=== PATIENT | female | born 2005 | race American Indian/Alaskan Native ===

== ENCOUNTER 2025-01-03 01:17 | Inpatient (IN) | payer BC, MEDICAID ==
[~2025-01-03] VITALS: Ht 170.2 cm; Wt 70.4 kg
[2025-01-03 01:53] LABS: APPEARANCE,URINE CLEAR (CLEAR); BILIRUBIN,URINE NEGATIVE (NEGATIVE); COLOR,URINE COLORLESS (YELLOW); GLUCOSE, URINE (UA) NEGATIVE (NEGATIVE); KETONES,URINE NEGATIVE (NEGATIVE); LEUKOCYTE ESTERASE ,URINE NEGATIVE (NEGATIVE); NITRATE,URINE NEGATIVE (NEGATIVE); OCCULT BLOOD,URINE TRACE (NEGATIVE); PH,URINE 5.5 (5.0-8.0); PH,URINE DRUG SCREEN 5.5 (5.0-8.0); PROTEIN,URINE NEGATIVE (NEGATIVE); SPECIFIC GRAVITIY, URINE 1.004 (1.003-1.030); UROBILINOGEN,URINE <=1.0 mg/dL (<=1.0)
[2025-01-03 01:55] LABS: RBC,URINE 0-2 /HPF (0-2)
[2025-01-03 01:56] LABS: BACTERIA,URINE None Seen /HPF (None Seen); SQUAMOUS EPITHELIAL CELL,UR Rare /LPF (None Seen); WBC,URINE None Seen /HPF (0-5)
[2025-01-03 02:00] LABS: ALCOHOL, URINE DRUG SCREEN POSITIVE (NEGATIVE); AMPHET/METH SCREEN,URINE NEGATIVE (NEGATIVE); BARBITURATE SCREEN, URINE NEGATIVE (NEGATIVE); BENZODIAZEPINES SCREEN,URINE POSITIVE (NEGATIVE); CANNABINOID SCREEN,URINE POSITIVE (NEGATIVE); COCAINE SCREEN,URINE NEGATIVE (NEGATIVE); METHADONE SCREEN, URINE NEGATIVE (NEGATIVE); OPIATE SCREEN,URINE NEGATIVE (NEGATIVE); PHENCYCLIDINE SCREEN,URINE NEGATIVE (NEGATIVE)
[2025-01-03 02:19] LABS: COVID AG,FIA SOURCE NASAL SWAB
[2025-01-03 02:42] LABS: SARS-COV2 (COVID) ANTIGEN,FIA Negative (Negative)
[2025-01-03 03:03] LABS: ANION GAP 9 mmol/L (8-16); CALCIUM, TOTAL 9.1 mg/dL (8.8-10.5); CARBON DIOXIDE 26 mmol/L (22-29); CHLORIDE 106 mmol/L (98-107); CREATININE 0.68 mg/dL (0.60-1.30); GLOMERULAR FILTR. RATE CALC > 60 mL/min (>60); GLUCOSE,RANDOM 74 mg/dL (70-110); POTASSIUM 3.7 mmol/L (3.5-5.1); SODIUM SERUM 141 mmol/L (136-145); UREA NITROGEN, BLOOD 10 mg/dL (7-18)
[2025-01-03] MEDS: IBUPROFEN 600 MG TABLET PO ONE (03:07)
[2025-01-03 03:12] LABS: ACETAMINOPHEN < 2 mcg/mL (10-30)
[2025-01-03 03:15] LABS: BASOPHILS % (AUTO) 0.5 % (0.0-2.0); EOSINOPHILS % (AUTO) 0.5 % (1.0-6.0); HEMATOCRIT 42.1 % (36-46); HEMOGLOBIN 13.7 g/dL (12.0-16.0); LYMPHOCYTES # (AUTO) 2.4 K/uL (1.0-4.8); LYMPHOCYTES % (AUTO) 18.9 % (22.0-44.0); MEAN CORPUSCULAR HGB CONC 32.6 G/dL (31.0-37.0); MEAN CORPUSCULAR VOLUME 89 fL (80-100); MONOCYTES # (AUTO) 0.6 K/uL (0.1-1.0); MONOCYTES % (AUTO) 4.3 % (2.0-9.0); NEUTROPHILS # (AUTO) 9.8 K/uL (1.8-7.7); NEUTROPHILS % (AUTO) 75.8 % (40.0-70.0); PLATELET COUNT (AUTO) 419 K/uL (150-450); RED BLOOD CELL COUNT(AUTO) 4.74 MIL/uL (4.00-5.20); RED CELL DISTRIBUTION WIDTH 15.5 % (11.5-14.5); WHITE BLOOD COUNT (AUTO) 12.9 K/uL (4.5-11.0)
[2025-01-03 03:19] LABS: SALICYLATE 1.2 mg/dL (2.8-20.0)
[2025-01-03] MEDS: DiphenhydrAMINE HCL 50 MG/ML VIAL IM ONE (03:31)
[2025-01-03] MEDS: LORazepam 2 MG/ML VIAL IM ONE (03:37)
[2025-01-03] MEDS: haloperidoL LACTATE 5 MG/ML VIAL IM ONE (03:38)
[2025-01-03 06:14] VITALS: O2SAT 97
[2025-01-03] MEDS ORDERED: haloperidoL 5 MG TABLET PO PRN (07:00)
[2025-01-03] MEDS ORDERED: MAG HYDROX/ALUMINUM HYD/SIMETH ES 30 ML SUSPENSION UDCUP PO PRN (10:00)
[2025-01-03] MEDS ORDERED: LOPERAMIDE HCL 2 MG CAPSULE PO PRN (10:00)
[2025-01-03] MEDS ORDERED: MAGNESIUM HYDROXIDE SUSPENSION 30 ML UDCUP PO PRN (10:00)
[2025-01-03] MEDS ORDERED: TUBERCULIN, PURIFIED PROTEIN DERIVATIVE 5 TU/0.1 ML SYRINGE ID ONE (10:00)
[2025-01-03] MEDS ORDERED: HydrOXYzine PAMOATE 50 MG CAPSULE PO PRN (10:00)
[2025-01-03] MEDS ORDERED: GuaiFENesin/D-METHORPHAN [SUGAR-FREE] 200-20MG/10 ML SYRUP UDCUP PO PRN (10:00)
[2025-01-03 12:11] VITALS: BP 136/76; PULSE 61; RESP 18; TEMP 97.3; O2SAT 98
[2025-01-03] MEDS: THIAMINE 100 MG TABLET PO SCH (18:17)
[2025-01-03 20:40] VITALS: RESP 16
[2025-01-04] MEDS: ACETAMINOPHEN 325 MG TABLET PO PRN (02:31)
[2025-01-04] MEDS: LORazepam 2 MG TABLET PO PRN (02:39)
[2025-01-04] MEDS: OMEGA-3/DHA/EPA/FISH OIL 1,000 MG CAPSULE PO SCH (08:20)
[2025-01-04] MEDS: MULTIVITAMINS WITH MINERALS, THERAPEUTIC TABLET PO SCH (08:20)
[2025-01-04] MEDS: DEXTROMETHORPHAN HBR/QUINIDINE 20/10 MG CAPSULE PO SCH (08:20)
[2025-01-04] MEDS: NALTREXONE HCL 50 MG TABLET PO SCH (08:20)
[2025-01-04] MEDS: FOLIC ACID 1 MG TABLET PO SCH (08:20)
[2025-01-04] MEDS: FLUoxetine HCL 20 MG CAPSULE PO SCH (08:22)
[2025-01-04 08:28] VITALS: BP 113/68; PULSE 88; RESP 18; TEMP 97.8; O2SAT 100
[2025-01-04 08:45] LABS: BASOPHILS % (AUTO) 0.6 % (0.0-2.0); EOSINOPHILS % (AUTO) 1.3 % (1.0-6.0); HEMOGLOBIN 12.4 g/dL (12.0-16.0); LYMPHOCYTES # (AUTO) 2.2 K/uL (1.0-4.8); LYMPHOCYTES % (AUTO) 21.8 % (22.0-44.0); MEAN CORPUSCULAR HGB CONC 32.7 G/dL (31.0-37.0); MEAN CORPUSCULAR VOLUME 89 fL (80-100); MONOCYTES # (AUTO) 0.7 K/uL (0.1-1.0); MONOCYTES % (AUTO) 6.6 % (2.0-9.0); NEUTROPHILS # (AUTO) 7.1 K/uL (1.8-7.7); NEUTROPHILS % (AUTO) 69.7 % (40.0-70.0); PLATELET COUNT (AUTO) 356 K/uL (150-450); RED BLOOD CELL COUNT(AUTO) 4.28 MIL/uL (4.00-5.20); RED CELL DISTRIBUTION WIDTH 15.8 % (11.5-14.5); WHITE BLOOD COUNT (AUTO) 10.2 K/uL (4.5-11.0)
[2025-01-04 09:05] LABS: HEMOGLOBIN A1C 4.8 % (3.8-5.6)
[2025-01-04 09:17] LABS: CHOL/HDL RATIO 2.1 (3.9-5.7); FREE T4 (FREE THYROXINE) 0.98 ng/dL (0.76-1.46); THYROID STIMULATING HORMONE 0.42 uIU/mL (0.36-3.74)
[2025-01-04] MEDS: LORazepam 2 MG TABLET PO ONE (09:52)
[2025-01-04] MEDS: NICOTINE 21 MG/24 HOUR PATCH TD ONE (13:50)
[2025-01-04] MEDS: QUEtiapine FUMARATE 25 MG TABLET PO ONE (13:51)
[2025-01-04] MEDS: QUEtiapine FUMARATE 25 MG TABLET PO SCH (16:30)
[2025-01-04] MEDS: ONDANSETRON 4 MG TABLET PO PRN (16:37)
[2025-01-04 17:05] LABS: GLUCOMETER DEV NAME(LOC) BV3N.2; GLUCOSE,POINT OF CARE 83 MG/DL (70-110)
[2025-01-04 19:50] VITALS: BP 103/71; PULSE 89; RESP 18; TEMP 98.4; O2SAT 98
[2025-01-04] MEDS: ZOLPIDEM TARTRATE 10 MG TABLET PO PRN (20:05)
[2025-01-04 23:46] LABS: GLUCOMETER DEV NAME(LOC) BV3S.2; GLUCOSE,POINT OF CARE 71 MG/DL (70-110)
[2025-01-04 23:59] VITALS: BP 111/73; PULSE 80; RESP 18; TEMP 97.9; O2SAT 100
[2025-01-05] VITALS (9 sets, daily range): BP systolic 104–124; BP diastolic 70–82; PULSE 75–99; RESP 16–18; TEMP 97.5–97.8; O2SAT 96–100
[2025-01-05] MEDS: MELATONIN 5 MG TABLET PO PRN (01:05)
[2025-01-05] MEDS: BuPROPion HCL 75 MG TABLET PO SCH (08:24)
[2025-01-05] MEDS: NICOTINE 21 MG/24 HOUR PATCH TD SCH (09:00)
[2025-01-05] MEDS ORDERED: IBUPROFEN 600 MG TABLET PO PRN (10:45)
[2025-01-05] MEDS: NICOTINE POLACRILEX 2 MG LOZENGE PO PRN (12:00)
[2025-01-05] MEDS: CYCLOBENZAPRINE HCL 10 MG TABLET PO SCH (16:39)
[2025-01-06] VITALS: BP 129/74; PULSE 80; RESP 18; TEMP 97.5; O2SAT 99
[2025-01-06 04:00] VITALS: BP 104/74; PULSE 76; RESP 18; TEMP 97.7; O2SAT 98
[2025-01-06] MEDS: PROMETHAZINE HCL 25 MG TABLET PO PRN (07:41)
[2025-01-06 08:00] VITALS: BP 110/68; PULSE 74; RESP 16; TEMP 97.8; O2SAT 98
[2025-01-06 08:13] VITALS: BP 116/76; PULSE 74; RESP 18; TEMP 97.8; O2SAT 98
[2025-01-06] MEDS: QUEtiapine FUMARATE 100 MG TABLET PO PRN (08:25)
[2025-01-06 12:00] VITALS: BP 127/77; PULSE 68; RESP 16; TEMP 98.2; O2SAT 98
[2025-01-06] MEDS ORDERED: BUPR-344 PO (13:07)
[2025-01-06] MEDS ORDERED: QUET25TA PO (13:08)
[2025-01-06] MEDS ORDERED: THIA100T92 PO (13:09)
[2025-01-06] MEDS ORDERED: MULT-1303 PO (13:10)
[2025-01-06] MEDS ORDERED: FOLI-130 PO (13:10)
[2025-01-06] MEDS ORDERED: NALT50TA33 PO (13:11)
[2025-01-06] MEDS ORDERED: OMEG100033 PO (13:12)
[2025-01-06] MEDS ORDERED: CYCL-448 PO (13:13)
== END 2025-01-06 14:45 | disposition home or self-care (01) | DRG 751 ==
LOC: EMS 03:23 → EDBEDREQSVC 06:39 → B3A 07:10
PROVIDERS: ADMIT Psychiatry & Neurology Psychiatry; ATTEND Psychiatry & Neurology Psychiatry
PROC: GZ56ZZZ Individual Psychotherapy, Supportive (ICD-10-PCS; principal; 2025-01-03)
PROC: GZHZZZZ Group Psychotherapy (ICD-10-PCS; 2025-01-03)
PROC: GZ58ZZZ Individual Psychotherapy, Cognitive-Behavioral (ICD-10-PCS; 2025-01-03)
DX: F33.2 Major depressive disorder, recurrent severe without psychotic features (principal); R45.851 Suicidal ideations; Z20.822 Contact with and (suspected) exposure to COVID-19; F41.9 Anxiety disorder, unspecified; F12.10 Cannabis abuse, uncomplicated; Z55.9 Problems related to education and literacy, unspecified; Z59.9 Problem related to housing and economic circumstances, unspecified; Z63.9 Problem related to primary support group, unspecified; Z79.899 Other long term (current) drug therapy; Z88.8 Allergy status to other drugs, medicaments and biological substances; Z65.3 Problems related to other legal circumstances
CPT/HCPCS: 80048; 80061; 80307; 81001; 82962; 83036; 84439; 84443; 84703; 85025; 86592; 93005; 96372; 99291; G0480; G0481; J1200; J1630; J2060; Q0162